=== PATIENT | female | born 1965 | race Two or more races ===

== ENCOUNTER 2024-10-08 07:32 | Outpatient (OUT) | payer OTHER, SELFPAY ==
--- OUTSIDE RECORDS SUMMARY | 2024-10-08 07:43 | XMS_ITS | Encounter Summary ---
Author Organization [facility] Address [address] [place] [address] Care Team Providers Care Logistics Manager Name Role Phone Randall Kaur MD Primary Care Provider [phone] Encounter Details Date Type Department Care Team ([facility] Contact Info) Description 10/31/2023 External Result Encounter [facility] Department Unsolicited July Nunes MD [address] [place] [address] Social History Tobacco Use Types Packs/Day Years Used Date Smoking Tobacco: Never Smokeless Tobacco: Never Alcohol Use Standard Drinks/Week Comments Yes 1 (1 standard drink = 0.6 oz pur e alcohol) Occasionally AUDIT-C Answer Date Recorded Q1: How often do you have a drink containing alc ohol? Monthly or less 09/12/2023 Q2: How many drinks containi ng alcohol do you have on a typical day when you are drinking? 1 or 2 09/12/2023 Q3: How often do you have si x or more drinks on one occasion? Less than monthly 09/12/2023 Comments No Sex and Gender Information Value Date Recorded Sex Assigned at Female 09/09/2023 10:41 PM EDT Legal Sex Female 7:07 PM EDT Gender Identity Female 09/09/2023 10:41 PM EDT Sexual Orientation Not on file documented as of this encounter Plan of Treatment Upcoming Encounters Date Type Department Care Team ([facility] Contact Info) Description 10/08/2024 11:45 AM EDT Office Visit [facility] [address] [place] [address] July Nunes MD [address] [place] [address] documented as of this encounter Procedures Procedure Name Priority Date/Time Associated Diagnosis Comments BI MAMMOGRAM SCREENING TOMOSYNTHESIS BILATERAL 10/31/2023 10:11 AM EDT documented in this encounter Results * Bilateral screening mammogram with tomosynthesis (10/31/2023 10:11 AM EDT) Anatomical Region Laterality Modality Breast Bilateral Mammography 10/31/2023 10:1 1 AM EDT Impressions 10/31/2023 10:15 AM EDT NO MAMMOGRAPHIC EVIDENCE OF MALIGNANCY. ROUTINE FOLLOW-UP IS RECOMMENDED IN ONE YEAR. RESULT CODE: 1 Negative DENSITY CODE: 2 (approximately 25-50% glandular) FOLLOW UP: 1YR The false-negative rate of mammography is approximately 10-percent. Management of a palpable abnormality must be based on clinical grounds. Patient was entered into a reminder system with a target due date for the next mammogram. Impression dictated by: Conor Hoang Jr., DNedraONedra10/31/2023 10:13 AM Dictation Location: [facility] Transcribed By: [facility] 10/31/23 1013 Dictated By: Conor Hoang Jr, DO 10/31/23 1011 Signed By: <Electronically signed by Conor Hoang Jr, DO in OV> 10/31/23 1013 Narrative 10/31/2023 10:15 AM EDT [facility] Main [address] [address] Mammography Report Signed Patient: Comfort Davenport MR#: [id number] : 1965 Acct:[id number] Age/Sex: 57 / F ADM Date: 10/30/23 Loc: [place] Room: Type: [facility] Attending Dr: July Nunes MD Copies to: MD Mitchell ANTUNEZ DO Ordering Provider: JULY NUNES MD Date of Service: 10/30/23 MM/MM screening mammo BI w/CAD: SCREENING CLINICAL DATA: Screening for malignancy. SCREENING MAMMOGRAM - FULL FIELD DIGITAL WITH TOMOSYNTHESIS AND CAD COMPARISON:Mammograms dating back to 2019. Tomosynthesis craniocaudal and mediolateral oblique views of both breasts were obtained using low- dose digital technique. This examination was reviewed with the aid of CAD. FINDINGS: The breast tissue is composed of scattered fibroglandular densities. There are no dominant masses, typically malignant calcifications or architectural distortion. There has been no significant interval change. MM/MM screening mammo BI w/CAD Procedure Note Radiology, Radiologist, - 10/31/2023 [facility] Main [place] [address] [place] [address] Mammography Report Signed Patient: Comfort Davenport MMR#: [id number] : 1965Acct:[id number] Age/Sex: 57 / FADM Date: 10/30/23 Loc: [place] Room:Type: [facility] Attending Dr: July Nunes MD Copies to: MD Mitchell ANTUNEZ DO Ordering Provider: JULY NUNES MD Date of Service: 10/30/23 MM/MM screening mammo BI w/CAD: SCREENING CLINICAL DATA: Screening for malignancy. SCREENING MAMMOGRAM - FULL FIELD DIGITAL WITH TOMOSYNTHESIS AND CAD COMPARISON:Mammograms dating back to 2019. Tomosynthesis craniocaudal and mediolateral oblique views of both breastswere obtained using low- dose digital technique. This examination was reviewed with the aid ofCAD. FINDINGS: The breast tissue is composed of scattered fibroglandular densities.There are no dominant masses, typically malignant calcifications or architectural distortion. There hasbeen no significant interval change. MM/MM screening mammo BI w/CAD IMPRESSION: NO MAMMOGRAPHIC EVIDENCE OF MALIGNANCY. ROUTINE FOLLOW-UP IS RECOMMENDED IN ONE YEAR. RESULT CODE: 1 Negative DENSITY CODE: 2 (approximately 25-50% glandular) FOLLOW UP: 1YR The false-negative rate of mammography is approximately 10-percent. Management of a palpable abnormality must be based on clinical grounds. Patient was entered into a reminder system with a target due date for thenext mammogram. Impression dictated by: Conor Hoang Jr., D.O.10/31/2023 10:13 AM Dictation Location: [facility] Transcribed By: [facility] 10/31/23 1013 Dictated By: Conor Hoang Jr, DO 10/31/23 1011 Signed By: <Electronically signed by Conor Hoang Jr, DO inOV> 10/31/23 1013 us July Nunes MD IMG BI PROCEDURES Final Result documented in this encounter Visit Diagnoses Not on filedocumented in this encounter Care Teams Logistics Manager Relationship Specialty Start Date End Date Randall Kaur MD [address] [place] [id number] PCP - General Family Medicine 09/13/23 documented as of this encounter
--- OUTSIDE RECORDS SUMMARY | 2024-10-08 07:43 | XMS_ITS | Clinical Summary ---
Author Organization [employer] [facility] Address [id number] [address] [place] [address] Care Team Providers Care Nurse Rn Bsn Name Role Phone Unavailable Primary Care Provider Unavailabl e Social History Tobacco Use Types Packs/Day Years Used Date Smoking Tobacco: Never Assessed Comments Unknown Sex and Gender Information Value Date Recorded Sex Assigned at Not on file Legal Sex Female 3:57 PM EDT Gender Identity Not on file Sexual Orientation Not on file Plan of Treatment Health Maintenance Due Date Last Done Comments Depression Screening 1979 Tobacco Screening 1979 Adult BMI Screening 12/02/1985 DTaP,Tdap and Td Vaccines (1 - Tdap) 12/02/1986 Pap Smear 12/02/1988 Zoster (Shingles) Vaccine (1 of 2) 12/02/2017 Influenza Vaccine 12/22/2024 Medical Devices Not on file Insurance [facility] MEDICAID
--- OUTSIDE RECORDS SUMMARY | 2024-10-08 07:43 | XMS_ITS | Encounter Summary ---
Author Organization [facility] Address [address] [place] [address] Phone Care Team Providers Care Stone Crusher Operator Name Role Phone Generic Provider, No Assigned Pcp MD Primary Car e Provider Unavailable Encounter Details Date Type Department Care Team (Late st Contact Info) Description 01/24/2024 Scanned Document [facility] [address] [place] [address] Scanning, Generic Provider Social History Tobacco Use Types Packs/Day Years Used Date Smoking Tobacco: Never Assessed Comments Unknown Sex and Gender Information Value Date Recorded Sex Assigned at Not on file Legal Sex Female 2:30 PM EST Gender Identity Not on file Sexual Orientation Not on file documented as of this encounter Plan of Treatment Not on file documented as of this encounter Procedures Procedure Name Priority Date/Time Associated Diagnosis Comments ECHOCARDIOGRAM 01/24/2024 documented in this encounter Results * Echocardiogram (01/24/2024) Narrative 01/24/2024 Ordered by an unspecified provider. us Generic Provider Scanning CV ECHO PROCEDURES Fin al Result documented in this encounter Visit Diagnoses Not on filedocumented in this encounter Care Teams Stone Crusher Operator Relationship Specialty Start Date End Date Generic Provider, No Assigned Pcp, PCP - General Family Medicine 03/24/23 documented as of this encounter
--- OUTSIDE RECORDS SUMMARY | 2024-10-08 07:43 | XMS_ITS | Clinical Summary ---
Author Organization [facility] Address [address] [place] [address] Phone Care Team Providers Care Metal Roaster Name Role Phone Generic Provider, No Assigned Pcp MD Primary Car e Provider Unavailable Allergies No known active allergies Social History Tobacco Use Types Packs/Day Years Used Date Smoking Tobacco: Never Assessed Comments Unknown Sex and Gender Information Value Date Recorded Sex Assigned at Not on file Legal Sex Female 2:30 PM EST Gender Identity Not on file Sexual Orientation Not on file Last Filed Vital Signs Vital Sign Reading Time Taken Comments Blood Pressure 162/93 03/24/2023 2:48 PM EST Pulse 94 03/24/2023 2:48 PM EST Temperature 36.8 C (98.2 F) 03/24/2023 1:52 PM EST Respiratory Rate 18 03/24/2023 2:48 PM EST Oxygen Saturation 98% 03/24/2023 1:52 PM EST Inhaled Oxygen Concentration - - Weight 63.5 kg (140 lb) 03/24/2023 1:52 PM EST Height 170.2 cm (5' 7 ) 03/24/2023 1:52 PM EST Body Mass Index 21.93 03/24/2023 1:52 PM EST Plan of Treatment Health Maintenance Due Date Last Done Comments CT Colonography 1965 Colonoscopy 1965 Colorectal Cancer Screening 1965 FIT-DNA (Cologuard) 1965 FIT 1965 HIV Screening 1965 Lipid Panel 1965 Sigmoidoscopy 1965 Yearly Adult Physical 1965 MMR Vaccines (1 of 1 - Standard series) 12/02/1968 Hepatitis C Screening 12/02/1985 Hepatitis B Vaccines (1 of 3 - 19+ 3-dose series) 12/02/1986 HPV/Cotest 12/02/1988 DTaP/Tdap/Td Vaccines (1 - Tdap) 12/02/1989 Pneumococcal Vaccine (1 of 1 - PCV) 12/02/2017 Zoster Vaccines (1 of 2) 12/02/2017 Mammogram 10/14/2023 10/13/2022, 09/22, 06/29/2020, Additional history exists COVID-19 Vaccine ( - season) 2023 08/17/2020, 07/20/2020 Influenza Vaccine (Season Ended) 2024 03/12/2023, 01/25/2022, 02/10/2021, Additional history exists Cervical Cancer Screening 09/19/2025 Pap Smear 09/19/2025 09/19/2022, 10/22, 09/09/2021 HIB Vaccines Aged Out No longer eligi ble based on patient's age to complete this topic HPV Vaccines Aged Out No longer eligi ble based on patient's age to complete this topic Hepatitis A Vaccines Aged Out No long er eligible based on patient's age to complete this topic IPV Vaccines Aged Out No longer eligi ble based on patient's age to complete this topic Meningococcal Vaccine Aged Out No rafael kirt eligible based on patient's age to complete this topic Rotavirus Vaccines Aged Out No longer eligible based on patient's age to complete this topic Procedures Procedure Name Priority Date/Time Associated Diagnosis Comments BI MAMMO BILATERAL SCREENING TOMOSYNTHESIS 10/13/2022 11:49 AM EDT Encounter for screening mammogram for malignant neoplasm of breast CONVERTED DISPENSING AND MEASURING OPTICIAN CYTOLOGY Routine 09/19/2022 3:06 PM EDT Encounter for screening for human papillomavirus (HPV) from Last 3 Months or Most Recently Relevant to Health Maintenance Results * BI mammo bilateral screening tomosynthesis (10/13/2022 11:49 AM EDT) Anatomical Region Laterality Modality Breast Bilateral Mammography Impressions 10/13/2022 12:25 PM EDT No mammographic evidence of malignancy. BI-RADS CATEGORY: Category: 1 - Negative. Recommendation: Continued age appropriate screening mammography For any future breast imaging appointments, please call [phone]). Narrative 10/13/2022 12:25 PM EDT Interpreted By: KAILYN TRIANA MD, MARLENE Patient Name: COMFORT FINK STUDY: DIGITAL MAMM SCREENING W/ KYRIE; 10/13/2022 11:49 am INDICATION: Screening. COMPARISON: 10/12/2021, 06/29/2020, 01/08/2020 and 07/21/2019 ACCESSION NUMBER(S): [id number] ORDERING CLINICIAN: THERESE ALMANZA FINDINGS: 2D and tomosynthesis images were reviewed at 1 mm slice thickness. The breasts are heterogeneously dense which may obscure small masses. No suspicious masses or calcifications are identified. This study was interpreted with CAD. Markers: Bill Moore'S Slough- skin lesion; triangle- palpable abnormality Procedure Note Kailyn Triana MD - 10/13/2022 Interpreted By: KAILYN TRIANA MD, MARLENE Patient Name: COMFORT FINK STUDY: DIGITAL MAMM SCREENING W/ KYRIE; 10/13/2022 11:49 am INDICATION: Screening. COMPARISON: 10/12/2021, 06/29/2020, 01/08/2020 and 07/21/2019 ACCESSION NUMBER(S): [id number] ORDERING CLINICIAN: THERESE ALMANZA FINDINGS: 2D and tomosynthesis images were reviewed at 1 mm slice thickness. The breasts are heterogeneously dense which may obscure small masses. No suspicious masses or calcifications are identified. This study was interpreted with CAD. Markers: Bill Moore'S Slough- skin lesion; triangle- palpable abnormality IMPRESSION: No mammographic evidence of malignancy. BI-RADS CATEGORY: Category: 1 - Negative. Recommendation: Continued age appropriate screening mammography For any future breast imaging appointments, please call [phone]). us Therese Almanza MD IMG BI PROCEDURES Final Re sult * CONVERTED DISPENSING AND MEASURING OPTICIAN CYTOLOGY (09/19/2022 3:06 PM EDT) Pathology Report Date of Procedure: 09/19/2022 Pathologist: [facility], Cytology Date Reported: 09/26/2022 Date Received: 09/20/2022 Submitting Physician: THERESE ALMANZA MD FINAL CYTOLOGICAL INTERPRETATION A. THINPREP PAP CERVICAL: Specimen adequacy: SATISFACTORY FOR EVALUATION. Quality Indicator: Endocervical/transf ormation zone component is present. General Categorization: NEGATIVE FOR INTRAEPITHELIAL LESION OR MALIGNANCY. Descriptive Interpretation: SHIFT IN VAGINAL TYREE SUGGESTIVE OF BACTERIAL VAGINOSIS. HIGH RISK HPV TEST RESULT: HPV GENOTYPE 16 NEGATIVE HPV GENOTYPE 18 NEGATIVE HPV GENOTYPE OTHER NEGATIVE Reference Range: Negative QC review performed at [facility], [address] [place] [id number] Testing for high-risk (HR) type of human papilloma virus (HPV) is performed by the Dilip petros HPV Test. The petros HPV Test is a qualitative polymerase chain reaction that amplifies DNA of HPV16, HPV18 and 12 other high-risk HPV types (31, 33, 35, 39, 45, 51, 52, 56, 58, 59, 66, and 68) associated with cervical cancer and its precursor lesions. A positive result indicates the presence of HPV DNA due to one or more of the 14 genotypes: 16, 18, 31, 33, 35, 39, 45, 51, 52, 56, 58, 59, 66, and 68. Negative results indicate HPV DNA concentrations are undetectable or below the pre-set threshold for detection. False negative results may be associated with unoptimized sampling. A negative HR HPV result does not exclude the possibility of future cytologic HSIL or underlying CIN2-3 or cancer. This test is approved for cervical specimens by the [place] Food and Drug Administration. Results of this test should be interpreted in conjunction with the patient's Pap test results. Please refer to ASCCP current guidelines for the use of HPV DNA testing, result interpretation, and patient management. The performance of this test was verified by the Molecular Diagnostic Laboratory at [facility]. The lab is certified under the Clinical Laboratory Amendments of 1988 (CLIA 88) as qualified to perform high complexity clinical laboratory testing. This specimen has been analyzed by the Format [employer] Imaging System ([employer] an automated imaging and review system, which assists the laboratory in evaluating cells on ThinPrep Pap tests. Following automated imaging, selected allen from every slide were reviewed by a communications scientist and/or pathologist. Electronically Signed Out By [facility], Cytology//MILE/GORDON By the signature on this report, the individual or group listed as making the Final Interpretation/Diag nosis certifies that they have reviewed this case. Diagnostic interpretation performed at [address] [address] Educational Note: Cervical cytology is a screening procedure primarily for squamous cancers and precursors and has associated false-negative and false-positive results as evidenced by published data. Your patient's test should be interpreted in this context, together with patient's history and clinical findings. Regular sampling and follow-up of unexplained clinical signs and symptoms are recommended to minimize false negative results. Clinical History Date of Last Menstrual Period: 08/26/2022 Other Clinical Conditions: COTEST HPV(Genotype) except for ASC-H, HSIL, Carcinoma - Include HPV Genotype testing Clinical Diagnosis History: Screening for cervical cancer - (Z12.4); Screening for HPV (human papillomavirus) - (Z11.51) Source of Specimen A: THINPREP PAP CERVICAL [facility] Department of Pathology [address] [place] [address] COPATH CONVERTED FINAL DIAGNOSIS A. THINPREP PAP CERVICAL: Specimen adequacy: SATISFACTORY FOR EVALUATION. Quality Indicator: Endocervical/transf ormation zone component is present. General Categorization: NEGATIVE FOR INTRAEPITHELIAL LESION OR MALIGNANCY. Descriptive Interpretation: SHIFT IN VAGINAL TYREE SUGGESTIVE OF BACTERIAL VAGINOSIS. HIGH RISK HPV TEST RESULT: HPV GENOTYPE 16 NEGATIVE HPV GENOTYPE 18 NEGATIVE HPV GENOTYPE OTHER NEGATIVE Reference Range: Negative [facility] COPATH CONVERTED CLINICAL DIAGNOSIS-HI STORY Clinical Diagnosis History: Screening for cervical cancer - (Z12.4); Screening for HPV (human papillomavirus) - (Z11.51) [facility] COPATH CONVERTED DIAGNOSIS COMMENT QC review performed at [facility], [address] [place] [address] Testing for high-risk (HR) type of human papilloma virus (HPV) is performed by the Dilip petros HPV Test. The petros HPV Test is a qualitative polymerase chain reaction that amplifies DNA of HPV16, HPV18 and 12 other high-risk HPV types (31, 33, 35, 39, 45, 51, 52, 56, 58, 59, 66, and 68) associated with cervical cancer and its precursor lesions. A positive result indicates the presence of HPV DNA due to one or more of the 14 genotypes: 16, 18, 31, 33, 35, 39, 45, 51, 52, 56, 58, 59, 66, and 68. Negative results indicate HPV DNA concentrations are undetectable or below the pre-set threshold for detection. False negative results may be associated with unoptimized sampling. A negative HR HPV result does not exclude the possibility of future cytologic HSIL or underlying CIN2-3 or cancer. This test is approved for cervical specimens by the [place] Food and Drug Administration. Results of this test should be interpreted in conjunction with the patient's Pap test results. Please refer to ASCCP current guidelines for the use of HPV DNA testing, result interpretation, and patient management. The performance of this test was verified by the Molecular Diagnostic Laboratory at [facility]. The lab is certified under the Clinical Laboratory Amendments of 1988 (CLIA 88) as qualified to perform high complexity clinical laboratory testing. This specimen has been analyzed by the NeurogesXPrep Imaging System ([employer] an automated imaging and review system, which assists the laboratory in evaluating cells on ThinPrep Pap tests. Following automated imaging, selected allen from every slide were reviewed by a communications scientist and/or pathologist. [facility] [employer] CONVERTED FINAL REPORT PDF LINK TO COPY AND PASTE \copathshare\copat h\PDF [id number] [email or web address].pdf [facility] TPP CERVICAL-Include Genotype 09/19/2022 3:06 PM EDT 09/20/2022 8:02 AM EDT us Therese Almanza MD LAB CYTOLOGY ORDERABLES Fi [facility]al [facility] [address] [place] [address] from Last 3 Months or Most Recently Relevant to Health Maintenance Insurance [facility] MEDICAID Care Teams Metal Roaster Relationship Specialty Start Date End Date Generic Provider, No Assigned Pcp, PCP - General Family Medicine 03/24/23
--- OUTSIDE RECORDS SUMMARY | 2024-10-08 07:43 | XMS_ITS | Data Portability ---
Author Organization [facility] DoublePositive [facility] Expressthreadsy [facility] Address [address] [place] [address] Assessment No assessment recorded. Plan of Treatment Reminders Order Date Submit Date Provider Last Modified By Organization Details Last Modified Time Details Appointments None recorded. Lab influenza virus A + B + SARS-CoV-2 (COVID19) Ag panel, rapid IA, upper respiratory specimen [address], [address] [place], [address], 3 11:27:45 rapid strep group A, throat [address], [address] [place], [address], 3 16:52:30 Referral None recorded. Procedures None recorded. Surgeries None recorded. Imaging None recorded. Medication Orders fluticasone propionate 50 mcg/actuati on nasal spray,suspe nsion 2022 023 [id number], [address] [place], [address], 3 11:27:45 Bromfed DM 2 mg-30 mg-10 mg/5 mL oral syrup 2022 023 [id number], [address] [place], [address], 3 11:27:45 albuterol sulfate HFA 90 mcg/actuati on aerosol inhaler 2022 023 [id number], [address] [place], [address], 3 09:08:17 benzonatate 200 mg capsule 2022 023 [id number] [place], [address], 3 11:06:28 Zithromax Z-Benjamín 250 mg tablet 2022 023 [id number] [place], [address], 3 11:06:32 codeine 10 mg-guaifene sin 100 mg/5 mL oral liquid 2022 023 [id number] [place], [address], 3 11:06:41 Patient TargetsNo targets recorded. Patient Instructions Encounter Date Encounter Id Patient Instructions Last Modified By Organization Details Last Modified Time 02/27/2023 [id number] Please consult our office promptly if you develop any of the following symptoms: 1. A fever of at least 101 F or 38.4 C 2. Throat pain that is severe or does not start to improve within 5 to 7 days Call for an ambulance or go to the emergency room if you: 1. Have trouble breathing 2. Cannot control your saliva (drooling) due to difficulty swallowing 3. Have swelling of the neck or tongue 4. Cannot move your neck or have trouble opening your mouth [email or web address] Not available 02/27/2023 10:01:16 03/05/2023 [id number] Please consult our office promptly if you develop any of the following symptoms: 1. A fever of at least 101 F or 38.4 C 2. Throat pain that is severe or does not start to improve within 5 to 7 days Call for an ambulance or go to the emergency room if you: 1. Have trouble breathing 2. Cannot control your saliva (drooling) due to difficulty swallowing 3. Have swelling of the neck or tongue 4. Cannot move your neck or have trouble opening your mouth Not available 03/05/2023 08:44:57 Reason for Referral None Reported. Results Created Date Observation Date Name Description Value Unit Range Abnormal Flag Note LastModifiedBy Organization Detail LastModifiedTime 01/31/2001/30/2023 rapid strep group A, throa t Strep negati ve Not Available [facility] [address] [place], [address], 01/30/2023 14:45:48 03/25/2003/25/2023 influ mallika virus A + B + SARS- CoV-2 (COVI D19) Ag panel , rapid IA, upper respi rator y speci men Influenza A negati ve Not Available [facility] [address] [place], [address], 03/25/2023 11:06:56 03/25/20 23 03/25/2023 influ mallika virus A + B + SARS- CoV-2 (COVI D19) Ag panel , rapid IA, upper respi rator y speci men Influenza B negati ve Not Available [facility] [address] [place], [address], 03/25/2023 11:06:56 03/25/20 23 03/25/2023 influ mallika virus A + B + SARS- CoV-2 (COVI D19) Ag panel , rapid IA, upper respi rator y speci men Rapid Covid negati ve Not Available [facility] [address] [place], [address], 03/25/2023 11:06:56 Result Notes None recorded. Problems No Known Problems Medical Equipment None Reported. Allergies No known drug allergies Medications Name Sig Start Date Stop Date Status Note LastModified by Organization Details LastModified Time azithromyci n 250 mg tablet TAKE 2 TABLETS BY MOUTH TODAY, THEN TAKE 1 TABLET DAILY FOR 4 DAYS DIRECTED 03/25 completed Not Available Not Available Not Available benzonatate 200 mg capsule TAKE 1 CAPSULE BY MOUTH THREE TIMES A DAY NEEDED FOR 7 DAYS 03/25 completed Not Available Not Available Not Available codeine 10 mg-guaifene sin 100 mg/5 mL oral liquid TAKE 10 ML EVERY 4 HOURS BY MOUTH NEEDED 03/25 completed Not Available Not Available Not Available albuterol sulfate HFA 90 mcg/actuati on aerosol inhaler INHALE 2 PUFFS EVERY 4 HOURS BY INHALATIO N ROUTE NEEDED active Not Available Not Available No t Available bromphenira mine-pseudo ephedrine-D M 2 mg-30 mg-10 mg/5 mL oral syrup TAKE 10 ML BY MOUTH EVERY 4 HOURS NEEDED FOR 5 DAYS active Not Available Not Available No t Available fluticasone propionate 50 mcg/actuati on nasal spray,suspe nsion SPRAY 1 SPRAY IN EACH NOSTRIL EVERY DAY active Not Available Not Available No t Available cyclobenzap rine 5 mg tablet TAKE 1 TABLET BY MOUTH EVERY DAY AT BEDTIME FOR 30 DAYS active Not Available Not Available No t Available Muscle Rub active Not Available Not Av ailable Not Available Vitals Date Recorded Body height Body mass index (BMI) Body weight Heart rate Respiratory rate Body temperature Oxygen saturation Oxygen saturation in Arterial blood by Pulse oximetry Systolic blood pressure Diastolic blood pressure Provider Name and Address Organization Details Last Updated DateTime 3 162.56 cm 26.7 kg/m2 03271.2 5 g 91 /min 16 /min 98.2 [degF] 96 % 96 % 158 mm[Hg] 102 mm[Hg] Daina Ornelas [facility] 3 14:45:05 Date Recorded Body height Body mass index (BMI) Body weight Heart rate Respiratory rate Body temperature Oxygen saturation Oxygen saturation in Arterial blood by Pulse oximetry Systolic blood pressure Diastolic blood pressure Provider Name and Address Organization Details Last Updated DateTime 3 162.56 cm 26.1 kg/m2 63113.7 6 g 96 /min 14 /min 98.7 [degF] 96 % 96 % 149 mm[Hg] 104 mm[Hg] Last Marie [facility] 3 10:01:52 Date Recorded Body height Body mass index (BMI) Body weight Heart rate Respiratory rate Body temperature Oxygen saturation Oxygen saturation in Arterial blood by Pulse oximetry Systolic blood pressure Diastolic blood pressure Provider Name and Address Organization Details Last Updated DateTime 3 170.18 cm 23.8 kg/m2 52443.0 4 g 80 /min 4 /min 98.3 [degF] 96 % 96 % 157 mm[Hg] 93 mm[Hg] Mira Clark [facility] 3 08:45:57 Date Recorded Heart rate Provider Name an d Address Organization Details Last Updated DateTime 03/25/2023 92 /min Zuleyma BASSETT [address] [place], [address], [place] [employer] 03/25/2023 11:28:18 Date Recorded Body height Body mass index (BMI) Body weight Heart rate Respiratory rate Body temperature Oxygen saturation Oxygen saturation in Arterial blood by Pulse oximetry Systolic blood pressure Diastolic blood pressure Provider Name and Address Organization Details Last Updated DateTime 170.18 cm 23.4 kg/m2 85200.4 2 g 113 /min 18 /min 99.2 [degF] 98 % 98 % 144 mm[Hg] 90 mm[Hg] Domitila Napoleseel [employer] 3 11:05:55 Social History Question Answer Notes LastModified by [employer] Details LastModified Time Tobacco Smoking Status Never Smoker Daina Ceci evans, [employer] 01/30/2023 14:45:32 What Was The Date Of Your Most Recent Tobacco Screening? 03/25/2023 Information not available 03/25/2023 Sex: Unknown Functional Status Question Answer Note LastModified by [employer] Details LastModified Time Do you use any illicit or recreational drugs? No [email or web address] Information not available 01/30/2023 What is your level of alcohol consumption? None Information not available 03/25/2023 Mental Status None recorded. Family History Nothing Reported. Medical History Condition Response Coronary Artery Disease N Gout N Other N Kidney Stones N Blood Diseases N Hyperthyroidism N Breast Cancer N Blood Transfusion N Hypothyroidism N Depression N COPD N Lung Disease N Developmental or Behavioral Disorders N Defects or Inherited Disease N Breast Problem N Difficulty Swallowing N Anesthesia Complications N Anxiety Disorder N Meniere's disease N Muscle, Joint, or Bone Problems N Obesity N Vision or Eye Problems N Arthritis N Infertility N Polyps N Mental Disorder N Cancer N Varicosities N Stroke N Endometriosis N Bladder or Kidney Problems N High Cholesterol N Liver Disease N Headaches Y Fibromyalgia N Kidney Disease N Allergies/Hayfever N Heart Problems N Ear or Hearing Problems N Hospitalizations N Thyroid Problems N GI Problems N ADD/ADHD N Eating Disorder N Skin Problems N Anemia N MRSA exposure N Constipation N Mental Illness N Diabetes N Ovarian Cancer N Bedwetting N Seizures/Epilepsy N Tuberculosis N AIDS/HIV N Congestive Heart Failure (CHF) N Eczema N Abuse/Domestic Violence N Diverticulitis N Asthma N Reflux/GERD N Hepatitis N Heart Disease N Pulmonary Embolism N Chronic Ear Infections N Pre-Eclampsia N Hypertension N Chicken Pox N Autism Spectrum Disorder (ASD) N Osteoporosis N Thrombophilias N Gynecological HistoryNo gynecological history recorded. Obstetrics History GPAL:G 0 P 0 0 0 0 Past Encounters Encounter ID Performer Location Encounter Start Date Encounter Closed Date Diagnosis/Indication Diagnosis SNOMED-CT Code Diagnosis ICD10 Code Diagnosis Note [id number] IRA DIAZ NP [facility] [address] [place] [address] 01/30/2023 14:30:59 01/30/2023 16:57:38 Sore throat 125318740 J02.9 Inflammati on of larynx caused by virus 429186626 J04.0 Loss of voice 66205007 R 49.1 [id number] TAMMY MORRISON NP [facility] [address] [address] 02/27/2023 09:39:43 02/27/2023 11:56:10 Cough 34299974 R05.9 Acute bronchitis 7482695 2 J20.9 [id number] TAMMY MORRISON NP [facility] [address] [address] 03/05/2023 08:26:02 03/05/2023 09:05:31 Cough 22011717 R05.9 Acute bronchitis 9936991 2 J20.9 [id number] IRA DIAZ NP [facility] [address] [address] 03/25/2023 10:52:23 03/25/2023 11:33:46 Cough 24912976 R05.9 Fever 429946979 R50.9 Chill 48798217 R68.83 Vomiting 510119927 R11.1 0 Nasal congestion 6754043 0 R09.81 Health Concerns Section Related Observation LastModified by Organization Detai ls LastModified Time None Recorded Concern Status LastModified by Organization Details LastModified Time None Recorded Advance Directives Directive None Recorded Payers Insurance Date Sequence Insurance Name Policy Number Policy Clark Covered Member ID Clark Member ID Guarantor Name 03/25/2023 1 [employer] - DOS ON OR AFTER 2022 - [employer] (MEDICAID REPLACEMENT - HMO) Comfort Davenport [id number] Comfort Davenport OBGyn Episode No OBEpisode recorded.
--- OUTSIDE RECORDS SUMMARY | 2024-10-08 07:43 | XMS_ITS | Clinical Summary ---
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 Role Phone Randall Kaur MD Primary Care Provider [phone] Allergies No known active allergies Medications Ascorbic Acid (vitamin C) 1000 MG tablet Take 100 mg by mouth Daily Active cyclobenzaprine (Flexeril) 5 MG tablet Take 5 mg by mouth at bedtime Active Calcium-Vitamin D-Vitamin K (Calcium + D) 500-1000-40 MG-UNT-MCG chewable tablet Orally Acti ve therapeutic multivitamin-min erals (Theragran-M) tablet Take 1 tablet by mouth Daily Active lisinopril 20 MG tablet 20 mg 4 Active ibuprofen 800 MG tabletIndication s:Migraine TAKE 1 TABLET BY MOUTH ONCE DAILY WITH FOOD OR MILK NEEDED 10 tablet 3 5 Active megestrol (Megace) 40 MG tabletIndication s:Endometrial hyperplasia without atypia, simple Take 1 tablet (40 mg total) by mouth Daily. 90 tablet 5 09/09/19 25 Active Problems Problem Noted Date Diagnosed Date Migraine 09/12/2023 Overview (09/12/2023): The patient has chronic migraines. She had tried and failed sumatriptan in the past. She continues to utilizing ibuprofen to abort headaches with good relief and her migraines are stable today. The patient does have a upper respiratory infection and coughing and this has worsened her headaches recently. 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 The patient does not demonstrate other signs of Parkinson's or parkinsonism. The tremor does not interfere with the patient's activities of daily living and the patient does not wish medication at this time. - PLAN: - Monitor clinically Family History Medical History Relation Name Comments Cancer Other Diabetes Other Relation Name Status Comments Other Social History Tobacco Use Types Packs/Day Years Used Date Smoking Tobacco: Never Smokeless Tobacco: Never Tobacco Cessation:Counseling Given: Not Answered Alcohol Use Standard Drinks/Week Comments Yes 1 [...] PM EDT Sexual Orientation Not on file Last Filed Vital Signs Vital Sign Reading Time Taken Comments Blood Pressure 122/82 06/10/2024 3:25 PM EST Pulse 83 04/28/2024 1:50 PM EST Temperature - - Respiratory Rate 16 09/13/2023 9:20 AM EDT Oxygen Saturation 100% 04/28/2024 1:50 PM EST Inhaled Oxygen Concentration - - Weight 70.3 kg (155 lb) 06/10/2024 3:25 PM EST Height 167.6 cm (5' 6 ) 09/13/2023 9:20 AM EDT Body Mass Index 25.02 09/13/2023 9:20 AM EDT Plan of Treatment Upcoming Encounters Date Type Department Care Team (Late st Contact Info) Description 10/08/2024 11:45 AM EDT Office Visit [facility] [address] [place] [phone] July Nunes MD [address] [place] [address] Health Maintenance Due Date Last Done Comments CT Colonography 1965 Colonoscopy 1965 Colorectal Cancer Screening 1965 FIT-DNA 1967 FIT 1967 FOBT 1965 Sigmoidoscopy 1965 Mammogram 10/30/2024 10/31/2023, 09/22, 10/12/2021, Additional history exists Influenza Vaccine (Season Ended) 2024 03/12/2023, 01/25/2022, 02/10/2021, Additional history exists HPV/Cotest 01/04/2026 01/04/2021, 06/22, 03/16/2020, Additional history exists Cervical Cancer Screening 10/02/2026 Pap Smear 10/02/2026 10/03/2023, 08/23, 09/09/2021 Procedures Procedure Name Priority Date/Time Associated Diagnosis Comments BI MAMMOGRAM SCREENING TOMOSYNTHESIS BILATERAL 10/31/2023 10:11 AM EDT THINPREP TIS PAP AND HPV MRNA E6/E7 WITH REFLEX TO HPV 16,18/45 Routine 10/03/2023 3:42 PM EDT Cervical cancer screening Screening for HPV (human papillomavirus) THINPREP TIS PAP REFLEX HPV MRNA E6/E7 (28436) Routine 01/04/2021 from Last 3 Months or Most Recently Relevant to Health Maintenance Results * Bilateral screening mammogram with tomosynthesis [...] mammogram. Impression dictated by: Conor Hoang Jr., D.ONedra10/31/2023 10:13 AM Dictation Location: [facility] Transcribed By: PWS 10/31/23 1013 Dictated By: Conor Hoang Jr, DO 10/31/23 1011 Signed By: <Electronically signed by Conor Hoang Jr, DO in OV> 10/31/23 1013 Narrative 10/31/2023 10:15 AM EDT [facility] [place] [address] Mammography Report Signed Patient: Comfort Davenport MR#: [id number] : 1965 Acct:[id number] Age/Sex: 57 / F ADM Date: 10/30/23 Loc: [place] Room: Type: [facility] Attending Dr: July Nunes MD [...] w/CAD Procedure Note Radiology, Radiologist, - 10/31/2023 [facility] Main [place] [address] [place], [place] [id number] Mammography Report Signed Patient: Comfort Davenport MMR#: [id number] : 1965Acct:[id number] Age/Sex: 57 / FADM Date: 10/30/23 Loc: [place] Room:Type: [facility] Attending Dr: July Nunes MD [...] Hoang Jr., D.O.10/31/2023 10:13 AM Dictation Location: [facility] Transcribed By: BHANU 10/31/23 1013 Dictated By: Conor Hoang Jr, DO 10/31/23 1011 Signed By: <Electronically signed by Conor Hoang Jr, DO inOV> 10/31/23 1013 us July Nunes MD IMG BI PROCEDURES Final Result * THINPREP TIS PAP AND HPV MRNA E6/E7 WITH REFLEX TO HPV 16,18/45 (10/03/2023 3:42 PM EDT) CLINICAL INFORMATION [facility] Comment:None given LMP [facility] Comment:NONE GIVEN PREV. PAP [facility] Comment:NONE GIVEN PREV. BX [facility] Comment:NONE GIVEN SOURCE [facility] Comment:None given STATEMENT OF ADEQUACY [facility] Comment: Satisfactory for evaluation. Endocervical/transformation zone component present. INTERPRETATION/RESU LT [facility] Comment: Cytology Results: Negative for intraepithelial lesion or malignancy. Reactive cellular changes associated with repair INFECTION [facility] Comment: Shift in vaginal renate suggestive of bacterial vaginosis. COMMENT [facility] Comment: This Pap test has been evaluated with computer assisted technology. CUSTOMER CONTACT SALES ASSOCIATE [facility] Comment: SPS, CT(ASCP) CT Screening Location: [facility], [address] [place] [address] PATHOLOGIST [facility] Comment: Chon Fernandez MD Board Certified in Anatomic Pathology and Cytopathology (electronic signature) For questions regarding this report call Anatomic Pathology at [phone] Chon Fernandez MD, Drone Operator [facility] [place], [place] (ALWAYS MESSAGE) [facility] Comment: EXPLANATORY NOTE: The Pap is a screening test for cervical cancer. It is not a diagnostic test and is subject to false negative and false positive results. It is most reliable when a satisfactory sample, regularly obtained, is submitted with relevant clinical findings and history, and when the Pap result is evaluated along with historic and current clinical information. HPV MRNA E6/E7 Not Detected Not Detected [facility] Comment: Methodology: Cloth Cutting Inspector-Mediated Amplification This assay detects E6/E7 viral messenger RNA (mRNA) from 14 high-risk HPV types (16,18,31,33,35,39,45,51,52,56,58,59,66,68). Cervical sources are required for HPV testing. If a vaginal source from a patient who has had a total hysterectomy with removal of cervix was submitted, please contact the testing laboratory for alternative testing options. For additional information, please refer to http://education.City Chattr/faq/DFF465o1 (This link if provided for information/ educational purposes only.) Swab Cervix uteri structure / Unknown 10/03/2023 3:42 PM EDT 10/04/2023 2:48 AM EDT Narrative Resulting Agency Comment Performing Organization Information Site ID: [id number] Name: [facility] Address: [address] [place] [address], [address] [place] [phone] Director: Dani Cat MD Site ID: [id number] Name: [facility] Address: [address] [place] [address], [place] [address] Director: Alvina Obregon us July Nunes MD LAB CYTOLOGY ORDERABLES Final Result [facility] * (ABNORMAL) THINPREP TIS PAP REFLEX HPV MRNA E6/E7 (27307) (01/04/2021) CLINICAL INFORMATION: H/O CIN1 [facility] LMP: 12/06/20 [facility] PREV. PAP: 07/12/20 LGSIL [facility] PREV. BX: COL[O [facility] SOURCE: Cervix, Endocervix [facility] STATEMENT OF ADEQUACY: SEE COMMENT [facility] Comment: Satisfactory for evaluation. Endocervical/transformation zone component present. GENERAL CATEGORIZATION: EPITHELIAL CELL ABNORMALITY(A) [facility] INTERPRETATION/R ESULT: Atypical Squamous Cells of Undetermined Significance (ASC-US)(A) [facility] INFECTION: Shift in vaginal renate suggestive of bacterial vaginosis. [facility] COMMENT: SEE COMMENT [facility] Comment: This Pap test has been evaluated with computer assisted technology. Suggest clinical correlation and follow-up as clinically appropriate Rare atypical squamous cells are seen. History noted. CUSTOMER CONTACT SALES ASSOCIATE : SEE COMMENT See Note: [facility] Comment: Reference Range: ZL, CT(ASCP) CT screening location: [facility], [address] [place] [address], [place] [address]. PATHOLOGIST: SEE COMMENT [facility] Comment: Chon Fernandez MD Board Certified in Anatomic Pathology and Cytopathology (electronic signature) For questions regarding this report call Anatomic Pathology at [phone] Chon Fernandez MD, Drone Operator [facility] [place], [place] COMMENT SEE COMMENT [facility] Comment: EXPLANATORY NOTE: The Pap is a screening test for cervical cancer. It is not a diagnostic test and is subject to false negative and false positive results. It is most reliable when a satisfactory sample, regularly obtained, is submitted with relevant clinical findings and history, and when the Pap result is evaluated along with historic and current clinical information. 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
--- OUTSIDE RECORDS SUMMARY | 2024-10-08 07:43 | XMS_ITS | Clinical Summary ---
Author Organization [facility] 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 Name Role Phone Unavailable Primary Care Provider Unavailabl e Allergies No known active allergies Medications Multiple Vitamins-Mineral s (THERAPEUTIC MULTIVITAMIN-MIN ERALS) tablet Take 1 tablet by mouth daily Active Active Problems Problem Noted Date Diagnosed Date Elective procedure for unacceptable cosmetic tamie earance 09/03/2017 Social History Tobacco Use Types Packs/Day Years Used Date Smoking Tobacco: Never Smokeless Tobacco: Never Alcohol Use Standard Drinks/Week Comments Yes 0 (1 standard drink = 0.6 oz pur e alcohol) ocassionaly Comments Unknown Sex and Gender Information Value Date Recorded Sex Assigned at Not on file Legal Sex Female 12:06 AM EST Gender Identity Not on file Sexual Orientation Not on file Last Filed Vital Signs Vital Sign Reading Time Taken Comments Blood Pressure 140/78 09/03/2017 1:10 PM EDT Pulse 101 09/03/2017 1:10 PM EDT Temperature - - Respiratory Rate 16 09/03/2017 1:10 PM EDT Oxygen Saturation - - Inhaled Oxygen Concentration - - Weight 56.7 kg (125 lb) 09/03/2017 1:10 PM EDT Height 167.6 cm (5' 6 ) 09/03/2017 1:10 PM EDT Body Mass Index 20.18 09/03/2017 1:10 PM EDT Plan of Treatment Not on file Insurance [employer] [facility]
[2024-10-08 08:01] LABS: Basophils Absolute Auto 0.1 10^3/uL (0.0-0.1); Eosinophils Absolute Auto 0.1 10^3/uL (0.0-0.7); Eosinophils Percent Auto 1.8 % (0.9-7.0); Hematocrit 37.1 % (36.0-48.0); Immature Granulocytes Abs Auto 0.02 10^3/uL (0.00-0.03); Immature Granulocytes Pct Auto 0.3 % (0.0-0.5); Lymphocytes Absolute Auto 2.2 10^3/uL (1.2-3.8); Lymphocytes Percent Auto 32.3 % (20.5-60.0); Mean Corpuscular Hemoglobin 30.5 pg (26.7-34.0); Mean Corpuscular Volume 87.1 fL (81.0-99.0); Mean Platelet Volume 11.3 fL (9.5-13.5); Monocytes Absolute Auto 0.5 10^3/uL (0.3-0.8); Monocytes Percent Auto 6.9 % (1.7-12.0); Neutrophils Percent Auto 57.7 % (43.0-75.0); Platelet Count 191 10^3/uL (150-450); Red Blood Count 4.26 10^6/uL (4.20-5.40); Red Cell Distribution Width 12.2 % (11.0-15.0); White Blood Count 6.8 10^3/uL (4.0-11.0)
[2024-10-08 09:08] LABS: Alanine Aminotransferase 22 U/L (14-59); Albumin Globulin Ratio 1.2; Albumin Level 3.6 g/dL (3.4-5.0); Alkaline Phosphatase 84 U/L (46-116); Anion Gap 9.7; Aspartate Amino Transferase 15 U/L (15-37); BUN Creatinine Ratio 17.8; Bilirubin Total 0.6 mg/dL (0.2-1.0); Calcium 8.9 mg/dL (8.5-10.1); Carbon Dioxide 31.2 mmol/L (21.0-32.0); Chloride 106 mmol/L (98-107); Chol HDL Ratio 3.5; Cholesterol 153 mg/dL (<=200); Estimated GFR (African America >60 (>=60 mL/min/1.73m^2); Estimated GFR (Non-African Ame >60 (>=60 mL/min/1.73m^2); Glucose 99 mg/dL (74-106); HDL Cholesterol 44 mg/dL (40-60); LDL Cholesterol Calculated 91.6 mg/dL; Potassium 3.9 mmol/L (3.5-5.1); Sodium 143 mmol/L (136-145); Total Protein 6.6 g/dL (6.4-8.2); Triglycerides 87 mg/dL (<=150); VLDL CHOLESTEROL 17.4 mg/dL
== END 2024-10-08 07:33 | disposition home or self-care (01) ==
LOC: LAB 07:41
DX: R19.8 Other specified symptoms and signs involving the digestive system and abdomen (principal); K59.00 Constipation, unspecified; Z13.6 Encounter for screening for cardiovascular disorders; Z13.1 Encounter for screening for diabetes mellitus
CPT/HCPCS: 36415; 80053; 80061; 85025